=== PATIENT | female | born 1985 | race Caucasian/White ===

== ENCOUNTER → 2021-12-19 15:31 | Outpatient (BNVA) | payer OTHER, SELFPAY | PROVIDERS: PCP Hospitalist; Visit Provider Obstetrics & Gynecology | DX: N89.8 Other specified noninflammatory disorders of vagina (principal) | CPT/HCPCS: 99202 ==

== ENCOUNTER → 2021-12-31 13:30 | Outpatient (BNVA) | payer OTHER, SELFPAY | PROVIDERS: PCP Hospitalist; Visit Provider Advanced Practice Midwife | DX: Z32.01 Encounter for pregnancy test, result positive (principal); N92.6 Irregular menstruation, unspecified; N89.8 Other specified noninflammatory disorders of vagina | CPT/HCPCS: 81025; 99212 ==

== ENCOUNTER 2023-09-05 11:27 | Outpatient (AMB) | payer OTHER, SELFPAY ==
--- NOTE | 2023-09-05 11:33 | A.OFFPC_ITS ---
Vital Signs 09/05/23 11:34 Height 5 ft 2 in Weight 107 lb 8 oz BMI 19.7 BP 104/64 Blood Pressure Location Lt brachial Position Sitting Pulse 69 Pulse Source Pulse Oximeter Pulse Oximetry (%) 100 Oxygen Delivery Method Room Air Intake Visit Reasons: Transfer Of Care from Dr. Moseley PHQ9 Intake Note: Patient is here for transfer of care from [facility]. Allergies Penicillins Allergy (Unknown, Verified 09/05/23 11:36) unknown Tobacco use date assessed: 09/05/23 Dental Screening Dental Screen Date: 09/05/23 Did you have a dental visit in the last 12 months?: Yes Did you have a dental problem in the last 6 months where you did not have access to dental care?: No Was dental information given to patient?: Patient has dentist HPI Transfer Of Care from Dr. Moseley PHQ9 HPI Details Transfer of Care Prior PCP:?SV Last office visit/CPE: Acute issue(s): Est. Care/Physical PMHx: Vaginal wall [place]. [place] [facility] [place]urg[place]x: x2. Breast augmentation 2010 FHx: Mom: HTN, HLD, Pancreatic CA. Dad: HTN. Sister: Healthy SocHx: Nonsmoker. EtOH social. No drugs. [facility] Medical History (Updated 09/05/23 @ 11:51 by Kam Harper) Marge duct, cyst Vaginal mass Surgical History Hx of section H/O breast augmentation Family History Mother No problems noted. Paternal Grandmother High cholesterol Paternal Grandfather Heart attack Maternal Grandfather No problems noted. Other Mental health disorder Social History Housing: House Patient Tobacco Use Status: Never used Tobacco e-Cigarette/Vaping Use: Never Used Current occupational status: unemployed Gender identity: Female Cognitive needs: No Hearing needs: No Vision needs: No Female Reproductive History Menstrual Age of Menarche: 13 Questionnaire PHQ-9 Over the last 2 weeks, how often have you been bothered by any of the following problems? 1. Little interest or pleasure in doing things: not at all 2. Feeling down, depressed, or hopeless: not at all 3. Trouble falling or staying asleep, or sleeping too much: not at all 4. Feeling tired or having little energy: not at all 5. Poor appetite or overeating: not at all 6. Feeling bad about yourself - or that you are a failure or have let yourself or your family down: not at all 7. Trouble concentrating on things, such as reading the newspaper or watching television: not at all 8. Moving or speaking so slowly that other people could have noticed. Or the opposite - being so fidgety or restless that you have been moving around a lot more than usual: not at all 9. Thoughts that you would be better off or of hurting yourself in some way: not at all Total score: 0 Depression Screening Interpretation: Negative Depression Screening Done: Yes 94443 - PHQ-9 Billing: Yes Source: Developed by Drs. Jose Thorne, Sendy Silver, Eleuterio Chapa and colleagues, with an educational david from [employer]. Thrive Questionnaire Date Thrive assessed: 09/10/21 VANESA-7 AMB Questionnaire VANESA-7 Date VANESA - 7 assessed: 09/10/21 Source: Developed by Drs. Jose Thorne, Sendy Silver, Eleuterio Chapa and colleagues, with an educational david from [employer]. Review of Systems Const Denies chills, Denies fatigue, Denies fever(s), Denies headache(s) and Denies weakness Eyes Denies change in vision ENT Denies dizziness, Denies headache(s), Denies hearing loss, Denies nasal congestion, Denies sinus pain, Denies sinus pressure and Denies sore throat Card Denies chest pain, Denies lightheadedness, Denies dyspnea and Denies other (palpitations) Resp Denies cough, Denies dyspnea and Denies wheezing GI Denies abdominal pain, Denies melena, Denies hematochezia, Denies change in bowel habits, Denies dyspepsia and Denies nausea Denies hematuria and Denies dysuria Musc Denies abnormal gait, Denies myalgias, Denies arthralgias, Denies numbness and Denies tingling Skin/Breast Denies rash, Denies unusual bruising and Denies wounds Neuro Denies abnormal gait, Denies dizziness, Denies headache(s), Denies memory loss, Denies numbness, Denies Sensory deficit (Neuro), Denies tingling and Denies weakness Psych Denies anxiety, Denies depression and Denies memory loss Endo Denies cold intolerance, Denies fatigue, Denies heat intolerance, Denies polydipsia and Denies polyuria Sal/Lymph Denies easy bleeding and Denies easy bruising Aller/Immun Denies wheezing Physical exam (Primary Care) BMI result Body Mass Index 19.7 Tobacco/Smoking Status: Tobacco use Status Tobacco use date assessed 03/25/22 09/05/23 11:34 Patient Tobacco Use Status Never used Tobacco 09/05/23 11:34 e-Cigarette/Vaping Use Never Used 09/05/23 11:34 Depression Screening Interpretation: Negative Thrive Assessment: Date of Thrive Assessment Date Thrive assessed 09/10/21 09/05/23 11:34 Const General: no acute distress, well developed, alert and awake Nutritional Appearance: well nourished Orientation/consciousness: patient oriented x3 HENMT Head: Yes normocephalic and Yes atraumatic Ears: hearing grossly normal bilaterally and TM's normal bilaterally General nose exam: Normal external nose present and Normal nares present Mouth: Normal oral and palatal mucosa present and moist mucous membranes Teeth and gingiva: dentition normal Throat: Yes posterior oropharynx normal Eyes General: appearance normal, both eyes and all related structures Pupils: Equal, round and reactive pupils present and Pupil accommodation reflex normal EOM: EOMs intact bilaterally Neck Neck: Yes normal visual inspection, Yes no lymphadenopathy and Yes trachea midline Thyroid: Thyroid normal Carotids: no bruits Lymphatic: no lymphadenopathy noted Chest Chest palpation & inspection: normal inspection of the chest Resp Effort & Inspection: normal respiratory effort Auscultation: clear to auscultation bilaterally Cardio Rate: regular rate Rhythm: regular rhythm Heart sounds: S1 normal heart sound present, S2 normal heart sound present, no gallops, no murmurs and no rubs Bruits: no abdominal aortic bruits and no carotid bruits GI Palpation (GI): No Abdominal aortic bruit present, Soft to palpation, nontender, No hepatosplenomegaly present and No Rebound tenderness present Auscultation: normal bowel sounds General: Yes no CVA tenderness Back/Spine/Pelvis Back: no CVA tenderness Cervical Spine: cervical ROM normal and No Cervical spine tenderness Thoracic/Lumbar Spine: thoraco-lumbar ROM normal, No pain with thoraco-lumbar ROM, No thoracic spinal tenderness and No lumbar spinal tenderness Skin Lesions: no lesions Rashes: no rashes Trauma: no lacerations or abrasions Wounds: no wounds Nails: normal Neuro General: patient oriented x3 Cranial nerves: Yes Equal, round and reactive pupils present Cognition (Neuro): normal cognition Gait exam (Neuro): Normal gait present Motor exam (neuro): 5/5 motor strength present throughout Sensory Exam: No Sensory deficit (Neuro) Deep tendon reflexes (DTR's): Right patellar reflex intensity grade: 2+ and Left patellar reflex intensity grade: 2+ Extrem General: Yes normal to inspection and No edema Psych Appearance: grossly normal Affect: normal affect Attitude: cooperative Thought process: Normal thought process present Assessment and Plan Assessment & Plan (1) Screening for cervical cancer: Code(s): Z12.4 - Encounter for screening for malignant neoplasm of cervix Plan: Followed?by?[facility]?and?has?next?appointment?in?November. Advised?her?to?ensure?that?she?is?up-to-date?with?her?Pap?smears (2) Adult general medical exam: Code(s): Z00.00 - Encounter for general adult medical examination without abnormal fin dings Plan: 38-year-old?female?presents?as?new?patient?for?extended?exam Exam?today?is?within?normal?limits Encouraged?healthy?diet?with?active?lifestyle?and?plenty?of?exercise Orders: Orders Comprehensive [place]. Panel Fast Today Z00.00 - Encounter for general adult medical examination without abnormal findings Lipid Panel Today Z00.00 - Encounter for general adult medical examination without abnormal findings Complete Blood Count Auto Diff Today Z00.00 - Encounter for general adult medical examination without abnormal findings Microalbumin, Random (w Creat) Today I10 - Essential (primary) hypertension UA and rflx microscopic Today Z00.00 - Encounter for general adult medical examination without abnormal findings TSH reflex Free T4 Today Z00.00 - Encounter for general adult medical examination without abnormal findings Coding Level of Care Code Est Pt Level 4 (47773) Diagnoses Screening for cervical cancer Z12.4 Adult general medical exam Z00.00
[2023-09-05 11:34] VITALS: BP 104/64; PULSE 69; O2SAT 100; BMI 19.7
== END 2023-09-05 12:10 | disposition home or self-care (01) ==
PROVIDERS: PCP Hospitalist; Visit Provider Family Medicine
DX: Z12.4 Encounter for screening for malignant neoplasm of cervix (principal); Z00.00 Encounter for general adult medical examination without abnormal findings
CPT/HCPCS: 99214

== ENCOUNTER 2023-09-12 07:54 | Outpatient (REF) | payer OTHER, SELFPAY ==
[2023-09-12 11:20] LABS: Appearance Urine Clear; Color Urine Yellow; Glucose Urine UA Negative (Negative); Leukocyte Esterase Urine Negative (Negative); Nitrite Urine Negative (Negative); Urine Blood Negative (Negative); Urine Ketones Negative (Negative); Urine Protein Negative (Neg-Trace)
[2023-09-12 11:23] LABS: MANUAL DIFF FLAG NO
[2023-09-12 11:40] LABS: Basophils Percent Auto 0.6 % (0-2); Eosinophils Absolute Auto 0.2 X10*3/uL (0.0-0.4); Eosinophils Percent Auto 3.1 % (0-4); Hematocrit 40.8 % (37.0-47.0); Hemoglobin 13.8 g/dl (12.0-16.0); Imm Gran Abs Auto 0.02 X10*3/uL (0.00-0.03); Imm Gran Pct Auto 0.4 % (0.0-0.4); Lymphocytes Absolute Auto 1.7 X10*3/uL (1.2-4.9); Mean Corpuscular HGB Conc 33.8 g/dl (31.0-35.0); Mean Corpuscular Hemoglobin 31.2 pg (27.0-33.0); Mean Corpuscular Volume 92.3 fL (80.0-98.0); Mean Platelet Volume 10.7 fL (9.4-12.3); Monocytes Absolute Auto 0.5 X10*3/uL (0.1-1.2); Monocytes Percent Auto 10.7 % (2-11); Neutrophils Absolute Auto 2.5 x10*3/uL (2.0-8.3); Neutrophils Percent Auto 50.2 % (45-73); Platelet Count 228 X10*3/uL (160-400); Red Blood Count 4.42 X10*6/uL (4.20-5.50); Red Cell Distribution Width 12.1 % (11.0-16.0); White Blood Count 4.9 X10*3/uL (4.8-10.8)
[2023-09-12 12:02] LABS: Creatinine Urine 154.65 mg/dL; Microalbum/Creatinine Ratio Ur 4.5 ug/mg cr (<30)
[2023-09-12 12:27] LABS: Alanine Aminotransferase 12 U/L (0-31); Albumin Level 4.2 g/dL (3.5-5.0); Alkaline Phosphatase 38 U/L (39-117); Anion Gap 13 (12-20); Aspartate Amino Transferase 18 U/L (5-31); Bilirubin Total 1.6 mg/dL (0.0-1.0); Blood Urea Nitrogen 12 mg/dL (9-16); Calcium 9.3 mg/dL (8.4-10.2); Carbon Dioxide 27 mmol/L (22-29); Chloride 104 mmol/L (96-108); Cholesterol 211 mg/dL (<200); Estimated Glomerular Filt Rate > 60; Glucose Fasting 81 mg/dL (60-99); HDL Cholesterol 78 mg/dL (>40); LDL Cholesterol Calculated 117 mg/dL (<100); Potassium 3.6 mmol/L (3.3-5.1); Sodium 140 mmol/L (135-145); Total Protein 6.8 g/dL (6.5-8.0); Triglycerides 80 mg/dL (<150)
[2023-09-12 12:32] LABS: TSH reflex Free T4 3.64 uIU/mL (0.32-4.0)
== END 2023-09-12 07:55 | disposition home or self-care (01) ==
LOC: HO.WFDLDS 07:54
PROVIDERS: Visit Provider Family Medicine
DX: Z00.00 Encounter for general adult medical examination without abnormal findings (principal); I10 Essential (primary) hypertension
CPT/HCPCS: 36415; 80053; 80061; 81003; 82043; 82570; 84443; 85025

== ENCOUNTER 2025-02-09 15:31 | Outpatient (AMB) | payer OTHER, SELFPAY ==
--- NOTE | 2025-02-09 15:39 | A.OFFPC_ITS ---
Vital Signs 02/09/25 15:42 Height 5 ft 2 in Weight 113 lb 2 oz BMI 20.7 BP 90/60 Blood Pressure Location Rt brachial Position Sitting Respiration 12 Pulse 80 Pulse Source Pulse Oximeter Temp 97.9 F Temp Source Oral Pulse Oximetry (%) 97 Oxygen Delivery Method Room Air Intake Visit Reasons: headaches Intake Note: patient is scheduled to discuss her headaches she has had x1week pt takes OTC meds to help with some relief Digital Printer Required: No Allergies Penicillins Allergy (Unknown, Verified 02/09/25 15:41) unknown Medication List - Last Reconciled 02/09/25 by Omid Jennings MD magnesium 400 mg (2 x 200 mg) PO DAILY 10 days multivitamin (Daily Multi-Vitamin tablet) 1 tab PO DAILY Tobacco use date assessed: 09/05/23 Dental Screening Dental Screen Date: 09/05/23 HPI headaches HPI Details 39 y/o female presents today with compla ints of headaches. Reports headaches x1 week. Has been taking OTC meds such as ibuprofen/tylenol for relief. She notes sometimes these did not help. She describes it as a bandlike headache and pressure at the back of her head. She notes it had happened 4x in a week. She notes she just had a baby. She reports stressors, broken sleep. COUNT INCLUDES [facility] Medical History (Updated 02/09/25 @ 15:57 by Kam Harper) Marge duct, cyst Vaginal mass Surgical History Hx of section H/O breast augmentation Family History Mother No problems noted. Paternal Grandmother High cholesterol Paternal Grandfather Heart attack Maternal Grandfather No problems noted. Other Mental health disorder Social History Housing: House Patient Tobacco Use Status: Never used Tobacco e-Cigarette/Vaping Use: Never Used Current occupational status: unemployed Gender identity: Female Cognitive needs: No Hearing needs: No Vision needs: No Female Reproductive History Menstrual Age of Menarche: 13 Questionnaire PHQ-9 Over the last 2 weeks, how often have you been bothered by any of the following problems? 1. Little interest or pleasure in doing things: not at all 2. Feeling down, depressed, or hopeless: not at all 3. Trouble falling or staying asleep, or sleeping too much: not at all 4. Feeling tired or having little energy: not at all 5. Poor appetite or overeating: not at all 6. Feeling bad about yourself - or that you are a failure or have let yourself or your family down: not at all 7. Trouble concentrating on things, such as reading the newspaper or watching television: not at all 8. Moving or speaking so slowly that other people could have noticed. Or the opposite - being so fidgety or restless that you have been moving around a lot more than usual: not at all 9. Thoughts that you would be better off or of hurting yourself in some way: not at all Total score: 0 Depression Screening Interpretation: Negative Depression Screening Done: Yes 62619 - PHQ-9 Billing: Yes Source: Developed by Drs. Jose Thorne, Sendy Silver, Eleuterio Chapa and colleagues, with an educational david from [employer]. Thrive Questionnaire Date Thrive assessed: 02/06/25 I am a: Patient What is your living situation today?: I have a steady place to live Within the past 12 months, did the food you bought not last and you didn't have the money to get more?: Never true Within the past 12 months, did you worry whether your food would run out before you got money to buy more?: Never true Do you have trouble paying for medicines?: No Do you have trouble getting transportation to medical appointments?: No Do you have trouble paying your heating and electricity bill?: No Do you have trouble taking care of your child, family member or friend?: No Do you have trouble with day-to-day activities such as bathing, preparing meals, shopping, managing finances, etc.?: No Are you currently unemployed and looking for a job?: No Are you interested in more education?: No Please select the resources that you would like help with: None Currently or been in a relationship where the following occur: No concerns reported THRIVE Score: 0 AUDIT C Alcohol Use Questionnaire (AUDIT-C) 1. How often do you have a drink containing alcohol?: 2-4 times a month 2. How many drinks containing alcohol do you have on a typical day when you are drinking?: 1 or 2 3. How often do you have six or more drinks on one occasion?: Never Total Score: 2 VANESA-7 AMB Questionnaire VANESA-7 Date VANESA - 7 assessed: 02/09/25 Feeling nervous, anxious, or on edge: 1 = Several days Not being able to stop or control worryin = Not at all Worrying too much about different things: 0 = Not at all Trouble relaxin = Not at all Being so restless that it is hard to sit still: 0 = Not at all Becoming easily annoyed or irritable: 0 = Not at all Feeling afraid as if something awful might happen: 0 = Not at all Total VANESA-7 score (0-4 normal; 5-9 mild; 10-14 moderate; 15-21 severe): 1 Source: Developed by Drs. Jose Thorne, Sendy Silver, Eleuterio Chapa and colleagues, with an educational david from [employer]. VANESA-7 Assessment Billing VANESA-7 Assessment Tool: VANESA-7 Assessment 31701 Review of Systems Const Denies fatigue and Reports headache(s) ENT Reports headache(s) Card Denies dyspnea Resp Denies cough, Denies dyspnea, Denies wheezing and Denies other (shortness of breath) Musc Denies numbness and Denies tingling Neuro Reports headache(s), Denies numbness and Denies tingling Psych Denies anxiety and Denies depression Endo Denies fatigue Aller/Immun Denies wheezing Physical exam (Primary Care) Vital Signs: Last Vital Signs Temp 97.9 F 02/09/25 15:42 Pulse 80 02/09/25 15:42 Resp 12 02/09/25 15:42 BP 90/60 02/09/25 15:42 Pulse Ox 97 02/09/25 15:42 Oxygen Delivery Method Room Air 02/09/25 15:42 BMI result Body Mass Index 20.7 Tobacco/Smoking Status: Tobacco use Status Tobacco use date assessed 09/05/23 02/09/25 15:45 Patient Tobacco Use Status Never used Tobacco 02/09/25 15:45 e-Cigarette/Vaping Use Never Used 02/09/25 15:45 PHQ-9: PHQ-9 Score PHQ-9: Total score 0 02/09/25 15:45 Depression Screening Interpretation: Negative Thrive Assessment: Date of Thrive Assessment Date Thrive assessed 02/06/25 02/09/25 15:45 Currently or been in a relationship where the following occur: No concerns reported Const General: well developed; No acute distress Nutritional Appearance: well nourished Orientation/consciousness: patient oriented x3 HENMT Head: Yes normocephalic and Yes atraumatic Eyes General: appearance normal, both eyes and all related structures Pupils: Equal, round and reactive pupils present EOM: EOMs intact bilaterally Resp Effort & Inspection: normal respiratory effort Auscultation: clear to auscultation bilaterally Cardio Rate: regular rate Rhythm: regular rhythm Heart sounds: S1 normal heart sound present, S2 normal heart sound present, no gallops, no murmurs and no rubs Neuro General: patient oriented x3 and gait normal Cranial nerves: Yes CN's II-XII intact bilaterally and Yes Equal, round and reactive pupils present Psych Affect: normal affect Coding Level of Care Code Est Pt Level 3 (38965) Diagnoses Headache R51.9 Additional Codes VANESA-7 Assessment Billing - VANESA-7 Assessment Tool: VANESA-7 Assessment 34769 ([id number]) PHQ-9 - 90876 - PHQ-9 Billing: Yes ([id number]) Assessment & Plan Assessment & Plan (1) Headache: Code(s): R51.9 - Headache, unspecified Category: Medical Plan: Bandlike,?tension?style?headaches. Neuro?exam?was?normal. Patient?has??and?also?has?stressors?trying?to?find?a?new?house May?not?be?getting?enough?fluids?and?blood?pressure?is?rather?low. Encouraged?increased?hydration Demonstrated?neck?and?shoulder?exercises Encouraged?plenty?of?sleep Watch?caffeine?intake Will?check?labs She?can?also?try?magnesium?tablet?for?relaxation?moving Will?follow-up?in?2?weeks?see?how?she?is?doing?in?follow-up?labs Orders: Orders CRP High Sensitivity Today R51.9 - Headache, unspecified Comprehensive [place]. Panel Fast Today R51.9 - Headache, unspecified, Z00.00 - Encounter for general adult medical examination without abnormal findings TSH reflex Free T4 Today R51.9 - Headache, unspecified, Z00.00 - Encounter for general adult medical examination without abnormal findings Vitamin B12 and Folate Today E53.8 - Deficiency of other specified B group vitamins, R51.9 - Headache, unspecified Complete Blood Count Auto Diff Today R51.9 - Headache, unspecified, Z00.00 - Encounter for general adult medical examination without abnormal findings Erythrocyte Sedimentation Rate Today R51.9 - Headache, unspecified Medications: New magnesium 400 mg (2 x 200 mg) PO DAILY 10 days 20 tabs 0RF
[2025-02-09 15:42] VITALS: BP 90/60; PULSE 80; RESP 12; TEMP 36.6; O2SAT 97; BMI 20.7
== END 2025-02-09 16:14 | disposition home or self-care (01) ==
LOC: HO.HMCFM 15:32
PROVIDERS: PCP Family Medicine; Visit Provider Family Medicine
DX: R51.9 Headache, unspecified (principal)

== ENCOUNTER → 2025-02-09 15:31 | Outpatient (BNVA) | payer OTHER, SELFPAY | PROVIDERS: PCP Family Medicine; Visit Provider Family Medicine | DX: Z00.00 Encounter for general adult medical examination without abnormal findings (principal); R51.9 Headache, unspecified | CPT/HCPCS: 96127; 99212 ==

== ENCOUNTER 2025-03-01 10:46 | Outpatient (REF) | payer OTHER, SELFPAY ==
[2025-03-01 14:06] LABS: MANUAL DIFF FLAG NO
[2025-03-01 14:09] LABS: Basophils Percent Auto 0.7 % (0-2); Eosinophils Absolute Auto 0.1 X10*3/uL (0.0-0.4); Eosinophils Percent Auto 2.8 % (0-4); Hematocrit 38.2 % (37.0-47.0); Hemoglobin 12.8 g/dl (12.0-16.0); Imm Gran Abs Auto 0.01 X10*3/uL (0.00-0.03); Imm Gran Pct Auto 0.2 % (0.0-0.4); Lymphocytes Absolute Auto 1.3 X10*3/uL (1.2-4.9); Lymphocytes Percent Auto 31.2 % (20-40); Mean Corpuscular HGB Conc 33.5 g/dl (31.0-35.0); Mean Corpuscular Hemoglobin 29.8 pg (27.0-33.0); Mean Platelet Volume 10.9 fL (9.4-12.3); Monocytes Absolute Auto 0.4 X10*3/uL (0.1-1.2); Monocytes Percent Auto 8.8 % (2-11); Neutrophils Absolute Auto 2.4 x10*3/uL (2.0-8.3); Neutrophils Percent Auto 56.3 % (45-73); Platelet Count 239 X10*3/uL (160-400); Red Blood Count 4.29 X10*6/uL (4.20-5.50); Red Cell Distribution Width 13.2 % (11.0-16.0); White Blood Count 4.3 X10*3/uL (4.8-10.8)
[2025-03-01 14:45] LABS: Alanine Aminotransferase 28 U/L (0-31); Albumin Level 4.6 g/dL (3.5-5.0); Alkaline Phosphatase 33 U/L (39-117); Anion Gap 12 (12-20); Aspartate Amino Transferase 26 U/L (5-31); Bilirubin Total 1.9 mg/dL (0.0-1.0); Blood Urea Nitrogen 13 mg/dL (9-16); Calcium 9.3 mg/dL (8.4-10.2); Carbon Dioxide 25 mmol/L (22-29); Chloride 109 mmol/L (96-108); Erythrocyte Sedimentation Rate 6 MM/HR (0-20); Estimated Glomerular Filt Rate > 60; Glucose Fasting 98 mg/dL (60-99); Potassium 3.7 mmol/L (3.3-5.1); Sodium 142 mmol/L (135-145); Total Protein 7.1 g/dL (6.5-8.0)
[2025-03-01 15:01] LABS: Folate 11.8 ng/mL (> or = 4.0); Vitamin B12 676 pg/mL (200-900)
[2025-03-03 09:17] LABS: CRP High Sensitivity <0.2 mg/L
== END 2025-03-01 10:47 | disposition home or self-care (01) ==
LOC: HO.WFDLDS 10:46
PROVIDERS: Visit Provider Family Medicine
DX: R51.9 Headache, unspecified (principal); E53.8 Deficiency of other specified B group vitamins; Z00.00 Encounter for general adult medical examination without abnormal findings
CPT/HCPCS: 36415; 80053; 82607; 82746; 84443; 85025; 85652; 86141

== ENCOUNTER → 2025-03-08 10:47 | Outpatient (AMB) | payer OTHER, SELFPAY ==
--- NOTE | 2025-03-08 10:46 | MHC.PC.OV ---
Intake Visit Reasons: f/u headache via telemed Intake Note: patient is scheduled to discuss headaches Living Supervisor Required: No Allergies Penicillins Allergy (Unknown, Verified 03/08/25 10:59) unknown Tobacco use date assessed: 09/05/23 Dental Screening Dental Screen Date: 09/05/23 HPI f/u headache via telemed HPI Details 39 y/o female presents to f/u headache, labwork via telemed. Labs drawn 03/01/25. Reviewed labs with pt. Labs seem fine. Pt notes she has been increasing her water intake. Has been doing neck exercises. [facility] Medical History (Updated 02/09/25 @ 15:57 by Kam Harper) Marge duct, cyst Vaginal mass Surgical History Hx of section H/O breast augmentation Family History Mother No problems noted. Paternal Grandmother High cholesterol Paternal Grandfather Heart attack Maternal Grandfather No problems noted. Other Mental health disorder Social History Housing: House Patient Tobacco Use Status: Never used Tobacco e-Cigarette/Vaping Use: Never Used Current occupational status: unemployed Gender identity: Female Cognitive needs: No Hearing needs: No Vision needs: No Female Reproductive History Menstrual Age of Menarche: 13 Questionnaire Thrive Questionnaire Date Thrive assessed: 02/06/25 I am a: Patient What is your living situation today?: I have a steady place to live Within the past 12 months, did the food you bought not last and you didn't have the money to get more?: Never true Within the past 12 months, did you worry whether your food would run out before you got money to buy more?: Never true Do you have trouble paying for medicines?: No Do you have trouble getting transportation to medical appointments?: No Do you have trouble paying your heating and electricity bill?: No Do you have trouble taking care of your child, family member or friend?: No Do you have trouble with day-to-day activities such as bathing, preparing meals, shopping, managing finances, etc.?: No Are you currently unemployed and looking for a job?: No Are you interested in more education?: No Please select the resources that you would like help with: None Currently or been in a relationship where the following occur: No concerns reported THRIVE Score: 0 VANESA-7 AMB Questionnaire VANESA-7 Date VANESA - 7 assessed: 02/09/25 Source: Developed by Drs. Jose Thorne, Sendy Silver, Eleuterio Chapa and colleagues, with an educational david from [employer]. Review of Systems Const Denies chills, Denies fatigue, Denies fever(s), Denies headache(s) and Denies weakness ENT Denies dizziness and Denies headache(s) Card Denies dyspnea Resp Denies cough, Denies dyspnea, Denies wheezing and Denies other (shortness of breath) Musc Denies numbness and Denies tingling Neuro Denies dizziness, Denies headache(s), Denies numbness, Denies tingling and Denies weakness Psych Denies anxiety and Denies depression Endo Denies fatigue Aller/Immun Denies wheezing Physical exam (Primary Care) Tobacco/Smoking Status: Tobacco use Status Tobacco use date assessed 09/05/23 03/08/25 10:49 Patient Tobacco Use Status Never used Tobacco 03/08/25 10:49 e-Cigarette/Vaping Use Never Used 03/08/25 10:49 Thrive Assessment: Date of Thrive Assessment Date Thrive assessed 02/06/25 03/08/25 10:49 Currently or been in a relationship where the following occur: No concerns reported Telehealth Telehealth Telehealth Platform: Telephone Location of provider rendering services: practice address Location of patient: address on file Patient Identification confirmed using: Name, : Yes Telehealth method: voice only Patient verbally consented to treatment: Yes Patient verbally consented to billing insurance company: Yes Patient informed of any privacy concerns related to visit: Yes Minutes spent on Phone/Video with Pt.: 9 Coding Level of Care Code Tele Est Pt Level 2 (03404) Diagnoses Headache R51.9 Assessment & Plan Assessment & Plan (1) Headache: Code(s): R51.9 - Headache, unspecified Category: Medical Plan: Headaches?have?resolved?with?good?hydration,?relaxation?and?neck?and?shoulder?exercises She?also?says?that?magnesium?is?helping?though?she?has?difficulty?swallowing?tablets.??She?can?for?smaller?OTC?tablets. Call?or?return?to?office?if?worsening?or?resumes. Lab?work?was?unremarkable
== END ==
LOC: HO.HMCFM 10:47
PROVIDERS: PCP Family Medicine; Visit Provider Family Medicine
DX: R51.9 Headache, unspecified (principal)